=== PATIENT | male | born 1965 | race Caucasian/White ===

== ENCOUNTER 2020-02-17 10:32 | Day surgery (SDC) | payer BC ==
[~2020-02-17 10:32] MED LIST: Acetaminophen TAB* 325 MG PO ONE; Buffered Lidocaine 1% SYRIN* 1 ML/SYRINGE INTRADERM ONE; Lactated Ringers 1000 ML Bag* 1,000 ML IV SCH
[2020-02-17] MEDS ORDERED: ceFAZolin 2 GM PREMIX in ORs 2 GM/50 ML BAG ONE (12:55)
[2020-02-17] MEDS ORDERED: Acetaminophen TAB* 325 MG ONE (12:55)
[2020-02-17] MEDS ORDERED: fentaNYL* 50 MCG/ML 2 ML VIAL (100 MCG VIAL) ONE (17:51)
[2020-02-17] MEDS ORDERED: Midazolam* 1 MG/ML 2 ML VIAL (2 MG) ONE (17:52)
[2020-02-17] MEDS ORDERED: Bupivacaine 0.5% SDV PF* 30ML VIAL ONE (17:55)
[2020-02-17] MEDS ORDERED: HYDROmorphone INJ1* 1 MG/ML SYRINGE IV PRN (18:13)
[2020-02-17] MEDS ORDERED: Naloxone* 0.4 MG/ML 1 ML VIAL IV PRN (18:13)
[2020-02-17] MEDS ORDERED: EPINEPHRINE 1 MG/ML 1 ML VIAL ONE (18:17)
[2020-02-17] MEDS ORDERED: Rocuronium* 10 MG/ML VIAL ONE (18:40)
[2020-02-17] MEDS ORDERED: Propofol* 10 MG/ML 20 ML BTL ONE (18:58)
[2020-02-17] MEDS ORDERED: Dexamethasone IV* 4 MG/ML 1 ML (4 MG) ONE (18:58)
[2020-02-17] MEDS ORDERED: Lidocaine 2% PF * 5 ML VIAL ONE (18:58)
[2020-02-17] MEDS ORDERED: Ondansetron INJ* 2 MG/ML VIAL ONE (20:33)
[2020-02-17] MEDS ORDERED: Sugammadex * 200 MG/2 ML VIAL IV PUSH ONE (20:33)
[2020-02-17] MEDS ORDERED: HYDROmorphone INJ1* 1 MG/ML SYRINGE ONE (21:09)
[2020-02-17 21:39] VITALS: BP 138/96
--- NOTE | 2020-02-18 22:07 | OP ---
OPERATIVE REPORT: DATE OF OPERATION: 02/17/20 DATE OF : 69 SURGEON: Johnnie Patel MD. CORE INSPECTOR: JOVANY Aguayo A physician virtual assistant for [employer] was required for the length of the procedure, for assistance with patient posit ioning, retraction, instrumentation, and closure. ANESTHESIOLOGIST: Dr. Baez. ANESTHESIA: General anesthesia, regional interscalene block anesthesia. PRE-OP DIAGNOSES: 1. Left shoulder rotator cuff tendonitis and partial thickness tears, articular- sided, supraspinatu s. 2. Left shoulder subacromial impingement and bursitis. 3. Left shoulder acromioclavicular joint osteoarthritis. 4. Left shoulder likely biceps tendinosis. POST-OP DIAGNOSES: 1. Left shoulder rotator cuff tendonitis and partial thickness tearing undersurface supraspinatus an d infraspinatus. 2. Left shoulder subacromial impingement and bursitis. 3. Left shoulder acromioclavicular joint osteoarthritis. 4. Left shoulder biceps long head tendon tears, tendinosis. 5. Left shoulder capsulitis. OPERATIVE PROCEDURE: 1. Left shoulder arthroscopic rotator cuff tendon repair with Regeneten biologic patch. 2. Left shoulder arthroscopic subacromial decompression. 3. Left shoulder arthroscopic distal clavicle resection. 4. Left shoulder arthroscopic extensive debridement including release of biceps tendon, debridement of the rotator cuff interval, debridement of the subacromial bursa. 5. Left shoulder manipulation under anesthesia. 6. Left shoulder open biceps tendinosis, subpectoral. ANTIBIOTICS: Ancef 2 g IV. IV FLUIDS: See Anesthesia note. [id number] TIME: 83 minutes. SPECIMEN: None. IMPLANTS: [employer] Regeneten biologic patch size large, Arthrex proximal biceps button. COMPLICATIONS: None. ESTIMATED BLOOD LOSS: Minimal. INDICATIONS FOR PROCEDURE: The patient is a 54-year-old man, who developed pain in September 2019, wh ich did not respond to nonoperative management and so the patient opted for surgery. The patient wor ks at [facility] in [place], [place]. Discussed risks and potential complications of the surgery with the patient preoperatively. Discusse d possible treatments of the rotator cuff including biologic patch and/or suture anchors and the requ ired postoperative limitations, recovery timeline. Offered the patient biceps release versus biceps t enodesis as needed and the patient preferred biceps tenodesis if either was required. DESCRIPTION OF PROCEDURE: In preoperative holding, the patient signed a written consent. Operative extremity was marked in preoperative holding. The patient underwent a regional interscalene nerve bl ock in preoperative holding. The patient was brought back to the operating room, placed supine on the operating room table. Sedat ed and intubated. The patient was converted to the lateral decubitus position. Axillary roll. Nice bag hardened. All bony prominences padded. A mini time-out performed. Examination under anesthesia of left shoulder. This revealed that forwa rd flexion was surprisingly limited even under anesthesia to about 130 or 140 degrees forward flexion . Using safe appropriate technique, I performed a manipulation of the left shoulder. There was palp able and/or audible tearing and the patient easily reached 180 degrees of forward flexion subsequent to that along with 90 degrees of external and 80 degrees of internal rotation. I put the patient's left upper extremity in longitudinal traction, 15 pounds with appropriate amount of forward flexion and abduction. Left shoulder was prepped and draped. Formal surgical time-out performed. Entered 30 cc of normal saline into the glenohumeral joint from posterior. Established posterior mina ohumeral joint portal. I started my diagnostic arthroscopy. No articular cartilage injury noted. Immediately noted some fra bobbi or tearing about the posterior aspect of the supraspinatus or infraspinatus. I established an anterior glenohumeral joint portal. I removed any blood in the joint to improve vis ualization with an arthroscopic shaver. I debrided tissue in the rotator cuff interval, to minimize the risk of stiffness postoperatively. I next studied the biceps tendon. There was clearly a tearin g along the biceps tendon, so I decided this needs to be treated. I entered an arthroscopic scissors from anterior and cut the biceps near to its origin. I asked for a hook tip cautery device planning to do a posterior capsulotomy. However, when I visuali zed from anterior, I noted that the posterior capsulotomy had essentially been done for me with the m anipulation under anesthesia. That was clearly what had allowed for the improvement of range of mot ion. Therefore, no additional capsulotomy was performed with that hook tip cautery device. I evaluated the rotator cuff undersurface. While there was no visible footprint on the humeral head, there was clearly some tearing of the undersurface of the rotator cuff. It was not at the insertion , but rather more proximal or more medial to that. I would describe this as more than rotator cuff t endonitis or fraying because some of the fragments of the tendon were extending inferiorly. I smooth ed out some of this torn tissue with an arthroscopic shaver. I visualized it from anterior and poste rior. I removed instruments and fluid from the glenohumeral joint and moved to the subacromial space. I es tablished anterior and posterior portals. I noted some subacromial bursitis, but not a significant amount of it. I saw less subacromial bursit is than I see with many of my stiff shoulders, that have some element of capsulitis. I established a lateral subacromial portal and debrided the subacromial bursitis tissue with an arthr oscopic shaver. I could now visualize the rotator cuff well. I probed it and visualized it, visually and by field. There was no bursal-sided tear in the rotator cuff. At this point, I decided that I would do a biologic patch to treat the undersurface articular-sided t earing in the rotator cuff. I next performed a subacromial decompression. I skeletonized the undersurface of the acromion with a cautery device and then smoothed out the undersurface of the anterior aspect of the acromion, removi ng some curve or hook with an arthroscopic travon. This flattened out nicely at the anterior aspect of the acromion. I next placed a superolateral portal and used my lateral portal to enter the biologic patch. I used PLLA larry to place the patch centered about the posterior aspect of the supraspinatus and into the anterior infraspinatus. The graft was very well fixed. I next moved to the AC joint. I debrided s ynovitic tissue there with a cautery device. I removed 8 mm of the distal end of the clavicle with a n arthroscopic travon. The intraoperative findings meshed with the preoperative findings that there was not a significant am ount of AC joint narrowing, but that the inferior aspect of the distal clavicle was clearly impinging on the rotator cuff and so debriding that distal clavicle back should help that. I placed several additional larry, into the biologic patch and then closed. I closed the arthrosco pic skin incisions with [id number] in 12 stitches using nylon 3-0 suture. The left upper extremity was taken out of traction and the patient was converted into more of a supin e position. I made a short longitudinal incision over the medial upper arm, dissected down to bicipi antonio groove, placed retractors. Debrided the anterior aspect of the bone with a periosteal elevator. Placed my Beath pin. Placed 4 stitches using FiberLoop suture in the long head biceps tendon. Loade d my biceps button. I passed that into bone, flipped it and tied a knot. I used a free needle to pa ss another tenodesis stitch. Removed excess suture and tendon. Irrigation. Closure of subcutaneous tissue with buried simple stitches using Vicryl 3-0 suture. Subcuticular closure using Monocryl 3-0 suture and a running stitch. Mastisol, Steri-Strips, 4x4, Tegaderm. Arthroscopic incisions had placed over them Xeroform, 4x4s, ABDs and foam tape. Sling and abduction p illow. The patient was awakened, extubated, and transferred to PACU. DISPOSITION: The patient was to take Percocet as needed for pain control and Keflex for infection pr ophylaxis. He will start physical therapy immediately according to the PT protocol for the Regeneten biologic patches. The patient will see me in clinic 10 to 14 days postoperatively. [id number]/[facility] #: [id number]
== END 2020-02-17 22:30 | disposition home or self-care (01) ==
LOC: OR 10:32
PROVIDERS: ATTEND Orthopaedic Surgery
DX: S46.012A Strain of muscle(s) and tendon(s) of the rotator cuff of left shoulder, initial encounter (principal); M75.42 Impingement syndrome of left shoulder; M75.52 Bursitis of left shoulder; M19.012 Primary osteoarthritis, left shoulder; M75.22 Bicipital tendinitis, left shoulder; G89.18 Other acute postprocedural pain; X50.0XXA Overexertion from strenuous movement or load, initial encounter; Y93.89 Activity, other specified; Y92.9 Unspecified place or not applicable; J45.909 Unspecified asthma, uncomplicated; M19.90 Unspecified osteoarthritis, unspecified site
CPT/HCPCS: A9270-GY; C1713; J0690; J1100; J1170; J2250; J2405; J2704; J3010; J3490

== ENCOUNTER 2024-11-11 10:16 | Observation (INO) ==
[~2024-11-11 10:16] MED LIST changes: -Acetaminophen TAB* 325 MG PO ONE; -Buffered Lidocaine 1% SYRIN* 1 ML/SYRINGE INTRADERM ONE; +Dexamethasone IV 4 MG/ML VIAL 1 ml VIAL ONE; -Lactated Ringers 1000 ML Bag* 1,000 ML IV SCH; +Metoclopramide 5 MG/ML VIAL (10 mg) IV PRN; +Midazolam 2 mg/2 ml VIAL 1 mg/ml 2 ml VIAL (2 mg) ONE; +NS 0.45% 1000 ml BAG 1,000 ML IV SCH; +Naloxone 0.4 mg VIAL 0.4 mg/ml 1 ml VIAL IV PRN; +Ondansetron 4 mg VIAL 2 MG/ML 2 ml VIAL IV PRN; +ROPIVACAINE 5 MG/ML 30 ML BTL (0.5%) ONE; +fentaNYL 100 mcg/2 ml 50 MCG/ML VIAL IV PRN; +fentaNYL 100 mcg/2 ml 50 MCG/ML VIAL ONE
[2024-11-11 10:59] LABS: Rapid COVID-19 Molecular Undetected (Undetected)
[2024-11-11] MEDS ORDERED: Lidocaine 2% PF 5 ML VIAL ONE (11:00)
[2024-11-11] MEDS: Buffered Lidocaine 1% SYRIN 1 ml INTRADERM ONE (11:14)
[2024-11-11] MEDS: Scopolamine 1 mg/72hr PATCH TRANSDERM ONE (11:14)
[2024-11-11] MEDS ORDERED: Tranexamic Acid 1 GM/100ML BAG 2,000 MG/200 ML BAG IV ONE (11:16)
[2024-11-11] MEDS ORDERED: ceFAZolin 2 GM PREMIX 2 GM/50 ML BAG ONE (11:16)
[2024-11-11] MEDS: Lactated Ringers 1000 ml BAG 1,000 ML IV SCH ×2 (11:28→17:54)
[2024-11-11] MEDS ORDERED: fentaNYL 100 mcg/2 ml 50 MCG/ML VIAL ONE (12:37)
[2024-11-11] MEDS ORDERED: Ondansetron 4 mg VIAL 2 MG/ML 2 ml VIAL ONE (13:07)
[2024-11-11] MEDS ORDERED: Dexamethasone IV 4 MG/ML VIAL 1 ml VIAL ONE (13:07)
[2024-11-11] MEDS ORDERED: KETAMINE HCL 10 MG/ML 20 ml VIAL (200 MG) ONE (13:26)
[2024-11-11] MEDS ORDERED: Propofol 10 MG/ML 20 ML BTL ONE ×2 (14:06→15:12)
[2024-11-11] MEDS ORDERED: Calcium Carb (TUMS) 500 mg CHEW TAB PO PRN (14:42)
[2024-11-11] MEDS ORDERED: Morphine 2 MG/ML SYRINGE IV PRN (14:42)
[2024-11-11] MEDS ORDERED: Magnesium Hydroxide LIQ 30 ML UDC PO PRN (14:42)
[2024-11-11] MEDS ORDERED: Lactulose 30 ml UDC PO PRN (14:42)
[2024-11-11] MEDS: Acetaminophen IV 1 GM/100ML 1,000 MG/100 ML BAG IV ONE (18:08)
[2024-11-11] MEDS: Magnesium Hydroxide LIQ 30 ML UDC PO SCH (20:45)
[2024-11-11] MEDS: Ondansetron ODT 4 mg TAB 4 MG TAB PO PRN (20:45)
[2024-11-11] MEDS: ceFAZolin 2 GM in NS 100 MLS Q8H (Pharmacy Admix) IVPB SCH (21:46)
[2024-11-11] MEDS ORDERED: ceFAZolin 2 GM PREMIX 2 GM/50 ML BAG IV SCH (22:00)
[2024-11-12] MEDS: Ondansetron 4 mg VIAL 2 MG/ML 2 ml VIAL IV PRN (02:15)
[2024-11-12 06:23] LABS: Hematocrit 37.9 % (38-53); Hemoglobin 13.4 g/dL (13.2-16.3); Mean Platelet Volume 8.5 fL (7.5-11.2); Platelet Count 234 10^3/uL (150-450)
[2024-11-12 06:39] LABS: Calcium 8.9 mg/dL (8.6-10.3); Creatinine, Serum 0.86 mg/dL (0.67-1.17); Potassium 4.3 mmol/L (3.5-5.0)
[2024-11-12] MEDS: Vitamin THERAPEUTIC TAB PO SCH (08:53)
[2024-11-12 10:01] VITALS: BP 148/83
== END 2024-11-12 14:25 | disposition home or self-care (01) ==
LOC: OR 10:16 → SSU 10:16
PROVIDERS: ADMIT Orthopaedic Surgery Adult Reconstructive Orthopaedic Surgery; ATTEND Orthopaedic Surgery Adult Reconstructive Orthopaedic Surgery